=== PATIENT | male | born 1960 | race Caucasian/White ===

== ENCOUNTER 2019-06-05 06:33 | Day surgery (SDC) | payer MEDICAID ==
[2019-06-05] MEDS ORDERED: Lidocaine 1% PF 2 ML SDV INJECT ONE (06:34)
[2019-06-05] MEDS ORDERED: Propofol 200 MG/20 ML SDV IV ONE (06:34)
[2019-06-05] MEDS ORDERED: Lactated Ringers 1,000 ML IV SCH (06:45)
--- NOTE | 2019-06-05 08:34 | PCM.OPNOTE ---
- General Post-Op/Procedure Note Date of Surgery/Procedure: 06/05/19 Operative Procedure(s): c scope with bx Findings: sigmoid diverticulosis anal skin tag Pre Op Diagnosis: screening Post-Op Diagnosis: sigmoid diverticulosis. anal skin tag Anesthesia Technique: MAC Primary Surgeon: Vladislav Hull Anesthesia Provider: Bill Almaguer Pathology: none Complications: None Condition: Good Free Text/Narrative:: see dictation
--- NOTE | 2019-06-05 14:22 | OR ---
DATE OF OPERATION: 06/05/2019 SURGEON: Vladislav Hull MD PROCEDURE PERFORMED: Colonoscopy. PREOPERATIVE DIAGNOSIS: Need for screening C-scope. POSTOPERATIVE DIAGNOSES: Anal tag and sigmoid diverticulosis. INDICATIONS FOR PROCEDURE: This is a 59-year-old white male, referred for a screening colonoscopy. He was offered and accepted same. DESCRIPTION OF OPERATION: After an excellent IV sedation was administered, digital rectal exam was performed. No marked abnormality was noted. Flexible colonoscope was inserted and advanced to the cecum. Prep was excellent. The following findings were noted. Ascending colon, unremarkable. Transverse colon, unremarkable. Descending colon, unremarkable. Sigmoid, scattered diverticula. Rectum and anus, unremarkable except for the skin tag. The patient tolerated the procedure well and was taken to recovery in good condition. Repeat colonoscopy in 10 years. /[id number] /MODL
== END 2019-06-05 09:20 | disposition home or self-care (01) ==
LOC: FB.SDS 06:33
PROVIDERS: ATTEND Surgery
DX: Z12.11 Encounter for screening for malignant neoplasm of colon (principal); K57.30 Diverticulosis of large intestine without perforation or abscess without bleeding; K64.4 Residual hemorrhoidal skin tags; K21.9 Gastro-esophageal reflux disease without esophagitis; I10 Essential (primary) hypertension; E11.9 Type 2 diabetes mellitus without complications; E78.00 Pure hypercholesterolemia, unspecified; J45.30 Mild persistent asthma, uncomplicated; Z86.010 Personal history of colon polyps; Z87.891 Personal history of nicotine dependence; Z79.84 Long term (current) use of oral hypoglycemic drugs; Z79.1 Long term (current) use of non-steroidal anti-inflammatories (NSAID); Z79.51 Long term (current) use of inhaled steroids; Z79.899 Other long term (current) drug therapy
CPT/HCPCS: 45378; 82962; J2001; J2704; J7120

== ENCOUNTER 2022-07-07 08:28 | Inpatient (IN) | payer MEDICAID ==
[2022-07-07] MEDS ORDERED: Sodium Chloride 0.9% 1,000 ML IV ONE ×2 (08:57→11:46)
[2022-07-07] MEDS ORDERED: Ondansetron 4 MG/2 ML SDV IVPUSH ONE ×2 (08:57→10:09)
[2022-07-07 10:06] LABS: ESTIMATED GFR 84 mL/min (>60)
[2022-07-07] MEDS ORDERED: Albuterol/Ipratropium 3.0-0.5 MG/3 ML Neb Soln NEB ONE (10:08)
[2022-07-07] MEDS ORDERED: Magnesium Sulfate/Water 50 ML IV ONE (11:15)
[2022-07-07] MEDS ORDERED: Acetaminophen 325 MG Tab PO PRN (13:25)
[2022-07-07] MEDS ORDERED: Ondansetron 4 MG/2 ML SDV IVPUSH PRN (13:25)
[2022-07-07] MEDS ORDERED: Metoclopramide 10 MG/2 ML SDV IVPUSH PRN (13:25)
[2022-07-07] MEDS ORDERED: Acetaminophen 650 MG Supp RECTAL PRN (13:25)
[2022-07-07] MEDS ORDERED: Sodium Chloride 0.9% 1,000 ML IV SCH ×2 (13:30→23:30)
[2022-07-07] MEDS ORDERED: Azithromycin 500 MG in Sodium Chloride 0.9% 250 ML IV SCH (14:00)
[2022-07-07 14:05] LABS: ESTIMATED GFR 95 mL/min (>60)
[2022-07-07 14:11] LABS: HEMOGLOBIN A1C 6.2 % (<5.7)
[2022-07-07] MEDS: methylPREDNISolone Sodium Succinate 125 MG/2 ML SDV IVPUSH SCH ×2 (14:34→22:17)
[2022-07-07] MEDS: Pantoprazole 40 MG Vial IVPUSH SCH (14:34)
[2022-07-07] MEDS: Albuterol/Ipratropium 3.0-0.5 MG/3 ML Neb Soln NEB SCH ×2 (15:47→20:22)
[2022-07-07] MEDS ORDERED: hydrOXYzine HCl 25 MG Tab PO PRN (15:50)
[2022-07-07] MEDS ORDERED: metFORMIN 500 MG Tab PO SCH (18:00)
[2022-07-07] MEDS ORDERED: LORazepam 2 MG/ML SDV IVPUSH PRN (18:15)
[2022-07-07] MEDS: Piperacillin/Tazobactam 4.5 GM in Sodium Chloride 0.9% 100 ML IV SCH (18:35)
[2022-07-07] MEDS ORDERED: Albuterol 8 GM Inhaler INH PRN (19:08)
[2022-07-07] MEDS: Simvastatin 20 MG Tab PO SCH (20:23)
[2022-07-07] MEDS: OLANZapine 5 MG Tab PO SCH (20:23)
[2022-07-07] MEDS ORDERED: VANCOmycin 2 GM/400 ML 2 GM in Premix Bag 1 BAG IV ONE (21:00)
[2022-07-07] MEDS ORDERED: Iopamidol 755 Mg/ML 100 ML Bottle IV ONE (23:22)
[2022-07-08] MEDS ORDERED: Sodium Chloride 0.9% 1,000 ML IV SCH
[2022-07-08] MEDS: Piperacillin/Tazobactam 4.5 GM in Sodium Chloride 0.9% 100 ML IV SCH ×5 (00:18→23:43)
[2022-07-08] MEDS: Pantoprazole 40 MG Vial IVPUSH SCH ×2 (02:04→14:13)
[2022-07-08 02:40] LABS: ESTIMATED GFR 84 mL/min (>60)
[2022-07-08] MEDS: methylPREDNISolone Sodium Succinate 125 MG/2 ML SDV IVPUSH SCH ×3 (05:04→22:25)
[2022-07-08] MEDS: Albuterol/Ipratropium 3.0-0.5 MG/3 ML Neb Soln NEB SCH ×4 (06:00→20:15)
[2022-07-08] MEDS ORDERED: Losartan 50 MG Tab PO SCH (09:00)
[2022-07-08] MEDS ORDERED: Hydrochlorothiazide 25 MG Tab PO SCH (09:00)
[2022-07-08] MEDS ORDERED: LORazepam 2 MG/ML SDV IVPUSH ONE (09:41)
[2022-07-08] MEDS: VANCOmycin 1 GM/200 ML 1 GM in Premix Bag 1 BAG IV SCH ×2 (10:16→21:25)
[2022-07-08] MEDS ORDERED: 50% Dextrose in Water 50 ML Syringe IVPUSH PRN ×2 (11:54→21:20)
[2022-07-08] MEDS ORDERED: Glucagon,Human Recombinant 1 MG Vial IM PRN ×2 (11:54→21:20)
[2022-07-08] MEDS: Insulin Lispro 100 Unit/ML 3 ML KwikPen SUBCUT SCH ×2 (13:17→17:48)
[2022-07-08] MEDS: Sodium Chloride 0.9% 10 ML Syringe FLUSH PRN ×4 (14:13→17:45)
[2022-07-08] MEDS: Simvastatin 20 MG Tab PO SCH (20:15)
[2022-07-08] MEDS: OLANZapine 5 MG Tab PO SCH (20:15)
[2022-07-08] MEDS ORDERED: Insulin Lispro 100 Unit/ML 3 ML KwikPen SUBCUT ONE (21:20)
[2022-07-09] MEDS: Pantoprazole 40 MG Vial IVPUSH SCH (01:03)
[2022-07-09] MEDS: Piperacillin/Tazobactam 4.5 GM in Sodium Chloride 0.9% 100 ML IV SCH (05:27)
[2022-07-09] MEDS: methylPREDNISolone Sodium Succinate 125 MG/2 ML SDV IVPUSH SCH (06:03)
[2022-07-09] MEDS: Sodium Chloride 0.9% 10 ML Syringe FLUSH PRN (06:08)
[2022-07-09] MEDS: Albuterol/Ipratropium 3.0-0.5 MG/3 ML Neb Soln NEB SCH ×2 (06:36→10:15)
[2022-07-09] MEDS ORDERED: Lactated Ringers 1,000 ML IV SCH (07:00)
[2022-07-09 07:01] LABS: ESTIMATED GFR 95 mL/min (>60)
[2022-07-09] MEDS: Insulin Lispro 100 Unit/ML 3 ML KwikPen SUBCUT SCH ×2 (08:30→12:51)
[2022-07-09] MEDS ORDERED: Propofol 200 MG/20 ML SDV IV ONE (10:12)
[2022-07-09] MEDS ORDERED: Lidocaine 2% 5 ML SDV IV ONE (10:12)
[2022-07-09] MEDS ORDERED: Midazolam 1 MG/ML 2 ML SDV IV ONE (10:12)
[2022-07-09] MEDS ORDERED: Sucralfate 1 GM Tab PO SCH (11:30)
[2022-07-09] MEDS ORDERED: Insulin Lispro 100 Unit/ML 3 ML KwikPen SUBCUT ONE (13:29)
== END 2022-07-09 13:30 | disposition home or self-care (01) | DRG 871 ==
LOC: FB.ED 08:28 → FB.MS 13:08 → UNDOADMIN 13:12
PROVIDERS: ADMIT Student in an Organized Health Care Education/Training Program; ATTEND Family Medicine
PROC: 0DB28ZX Excision of Middle Esophagus, Via Natural or Artificial Opening Endoscopic, Diagnostic (ICD-10-PCS; principal; 2022-07-09)
PROC: 0DB18ZX Excision of Upper Esophagus, Via Natural or Artificial Opening Endoscopic, Diagnostic (ICD-10-PCS; 2022-07-09)
DX: A41.9 Sepsis, unspecified organism (principal); K20.91 Esophagitis, unspecified with bleeding; K29.71 Gastritis, unspecified, with bleeding; E87.1 Hypo-osmolality and hyponatremia; J45.31 Mild persistent asthma with (acute) exacerbation; E87.2 Acidosis; F10.229 Alcohol dependence with intoxication, unspecified; H91.90 Unspecified hearing loss, unspecified ear; E78.00 Pure hypercholesterolemia, unspecified; H54.7 Unspecified visual loss; M54.9 Dorsalgia, unspecified; G89.29 Other chronic pain; R27.0 Ataxia, unspecified; E80.6 Other disorders of bilirubin metabolism; R73.9 Hyperglycemia, unspecified; K44.9 Diaphragmatic hernia without obstruction or gangrene; J20.9 Acute bronchitis, unspecified; Z79.82 Long term (current) use of aspirin; Z79.84 Long term (current) use of oral hypoglycemic drugs; Z79.899 Other long term (current) drug therapy
CPT/HCPCS: 00731-QZ; 36415; 70450; 71046; 71260; 74177; 80048; 80053; 80202; 80307; 81001; 82947; 83036; 83605; 83735; 84295; 84484; 85025; 85610; 86140; 87040; 93005; 94640; 96361; 96365; 96375; 96376; 99285-25; A9270-GY; C9113; J0456; J1815; J2060; J2250; J2405; J2543; J2704; J2930; J3370; J3475; J3490; J7030; J7050; J7120; J7620; Q9967